=== PATIENT | female | born 1955 | race Hispanic/Latino ===

== ENCOUNTER 2020-10-14 05:55 | Day surgery (SDC) | payer MEDICARE ==
[2020-10-09 10:44] LABS: Basophils # (Auto) 0.1 K/mm3 (0.0-0.1); Basophils % (Auto) 1.1 % (0.0-1.8); Eosinophils # (Auto) 0.2 K/mm3 (0.0-0.4); Eosinophils % (Auto) 2.4 % (0.0-4.3); Hematocrit 45.8 % (30.3-42.9); Hemoglobin 15.5 gm/dl (10.1-14.3); Lymphocytes # (Auto) 2.6 K/mm3 (1.2-5.4); Lymphocytes % (Auto) 31.8 % (13.4-35.0); Mean Corpuscular HGB Conc 34 % (30-34); Mean Corpuscular Volume 89 fl (79-97); Monocytes # (Auto) 0.6 K/mm3 (0.0-0.8); Monocytes % (Auto) 7.7 % (0.0-7.3); Platelet Count 232 K/mm3 (140-440); Red Blood Count 5.12 M/mm3 (3.65-5.03); Red Cell Distribution Width 14.8 % (13.2-15.2)
[2020-10-09 11:08] LABS: Alanine Aminotransferase 13 units/L (7-56); Blood Urea Nitrogen 13 mg/dL (7-17); Calcium 9.3 mg/dL (8.4-10.2); Hemolysis Index 8
[2020-10-09 11:27] LABS: BUN/Creatinine Ratio 19
[2020-10-14] MEDS ORDERED: LACTATED RINGERS 1,000 ML IV SCH (06:00)
[2020-10-14] MEDS ORDERED: CELECOXIB 200 MG CAP PO NR (06:00)
[2020-10-14] MEDS ORDERED: ACETAMINOPHEN 500 MG TAB PO SCH (06:00)
[2020-10-14] MEDS ORDERED: MIDAZOLAM 2 MG/2 ML INJ IV NR (06:00)
[2020-10-14] MEDS ORDERED: GABAPENTIN 300 MG CAP PO NR (06:00)
[2020-10-14] MEDS ORDERED: BUPIVACAINE/PF (0.25%) 2.5 MG/ML 30 ML VIAL INFILTRATI ONE ×2 (07:12→09:10)
[2020-10-14] MEDS ORDERED: HYDROmorphone 1 MG/1 ML INJ IV PRN (07:20)
[2020-10-14] MEDS ORDERED: HYDROmorphone 1 MG/1 ML INJ ONE (07:20)
[2020-10-14] MEDS ORDERED: ONDANSETRON 4 MG/2 ML INJ IV PRN (07:20)
[2020-10-14] MEDS ORDERED: propofoL 200 MG/20 ML VIAL IV ONE (07:20)
--- NOTE | 2020-10-14 07:20 | Anesthesia Consultation ---
Anesthesia Consult and Med Hx Date of service: 10/14/20 - Airway Anesthetic Teeth Evaluation: Poor, Partials ROM Head & Neck: Adequate Mental/Hyoid Distance: Adequate Mallampati Class: Class III Intubation Access Assessment: Possibly Difficult - Pre-Operative Health Status ASA Pre-Surgery Classification: ASA3 Proposed Anesthetic Plan: General - Pulmonary Hx Smoking: Yes SOB: Yes (chronic, unchanged ARREOLA) COPD: Yes Home Oxygen Therapy: No - Cardiovascular System Hx Hypertension: Yes (took metoprolol this morning) Hx Heart Attack/AMI: No - Central Nervous System CVA: Yes (TIA 2010, 2012) Hx Back Pain: Yes - Gastrointestinal Hx Gastroesophageal Reflux Disease: Yes (diet related) - Endocrine Hx Renal Disease: No Hx Liver Disease: No Hx Insulin Dependent Diabetes: No Hx Non-Insulin Dependent Diabetes: No Hx Thyroid Disease: No - Other Systems Hx Obesity: Yes (BMI 33) - Additional Comments Anesthesia Medical History Comments: No hx anesthetic complications. Used inhalers last night. Reports rash with diclofenac but no issues with ibuprofen or other NSAIDs.
--- NOTE | 2020-10-14 07:20 | Anesthesia Day of Surgery ---
Anesthesia Day of Surgery - Day of Surgery Patient Examined: Yes Patient H&P Reviewed: Yes Patient is NPO: Yes Beta Blockers: Yes (metoprolol today AM)
[2020-10-14] MEDS ORDERED: ROCURONIUM 50 MG/5 ML INJ IV ONE (07:21)
[2020-10-14] MEDS ORDERED: LIDOCAINE MPF (2%) 20 MG/1 ML VIAL 5 ML ONE (07:21)
[2020-10-14] MEDS ORDERED: ceFAZolin/Water 2 GM/20 ML 2 GM/20 ML SYRINGE IV ONE (07:49)
--- NOTE | 2020-10-14 07:49 | Short Stay Summary ---
Short Stay Documentation Date of service: 10/14/20 Narrative H&P: Pt is a 65 year old female who presented with postmenopausal bleeding and a pelvic mass - History Principal diagnosis: Endometrial hyperplasia H&P: obtained from office Past Medical History: arthritis, hypertension, hyperlipidemia Past Surgical History: appendectomy, cholecystectomy, tonsillectomy Social history: , smoking (for several years) - Allergies and Medications Current Medications: Allergies diclofenac Allergy (Verified 10/09/20 12:34) Rash tizanidine Allergy (Verified 10/09/20 12:34) Rash Home Medications Medication Instructions Recorded Confirmed Last Taken Type Albuterol Sulfate [Proventil Hfa] 2 puff IH PRN PRN 10/09/20 10/09/20 10/13/20 22:30 History Aspirin [Adult Aspirin] 81 mg PO DAILY 10/09/20 10/14/20 10/10/20 History Fluticasone/Salmeterol [Advair 1 puff IH DAILY 10/09/20 10/09/20 10/13/20 22:30 History 250-50 Diskus] Ipratropium/Albuterol Sulfate 1 dose IH PRN PRN 10/09/20 10/09/20 10/13/20 22:30 History [DUONEB *Not for PRN Use*] Metoprolol [Lopressor] 25 mg PO DAILY 10/09/20 10/14/20 10/14/20 03:30 History Pravastatin [Pravachol] 40 mg PO QHS 10/09/20 10/14/20 10/12/20 History Active Medications Acetaminophen (Acetaminophen 500 Mg Tab) 1,000 mg PO PREOP KEN Stop: 10/14/20 23:59 Last Admin: 10/14/20 06:58 Dose: 1,000 mg Documented by: Celecoxib (Celecoxib 200 Mg Cap) 200 mg PO PREOP NR Stop: 10/14/20 23:59 Last Admin: 10/14/20 06:58 Dose: 200 mg Documented by: Gabapentin (Gabapentin 300 Mg Cap) 300 mg PO PREOP NR Stop: 10/14/20 23:59 Last Admin: 10/14/20 06:58 Dose: 300 mg Documented by: Hydromorphone HCl (Hydromorphone 1 Mg/1 Ml Inj) 0.5 mg IV Q10MIN PRN PRN Reason: Pain , Severe (7-10) Stop: 10/14/20 23:00 Lactated Ringer's (Lactated Ringers) 1,000 mls @ 50 mls/hr IV DIRECT KEN Stop: 10/14/20 23:59 Last Admin: 10/14/20 07:00 Dose: 50 mls/hr Documented by: Midazolam HCl (Midazolam 2 Mg/2 Ml Inj) 2 mg IV PREOP NR Stop: 10/14/20 23:59 Last Admin: 10/14/20 07:32 Dose: 2 mg Documented by: Ondansetron HCl (Ondansetron 4 Mg/2 Ml Inj) 4 mg IV ONCE PRN PRN Reason: Nausea And Vomiting Stop: 10/14/20 18:00 - Physical exam General appearance: no acute distress Lungs: Clear to auscultation (with mild wheezes) Breasts: deferred Heart: Regular rate, Normal S1, Normal S2 Gastrointestinal: normal, normoactive bowel sounds Female Genitourinary: normal Rectal Exam: deferred Extremities: no ischemia - Brief post op/procedure progress note Date of procedure: 10/14/20 Pre-op diagnosis: Endometrial hyperplasia, Pelvic mass Post-op diagnosis: same (with uterine fibroids, ovarian cyst, pelvic adhesions) Procedure: D&C, Diagnostic laparoscopy, Ovarian cystectomy Anesthesia: GETA Findings: 3cm subserosal fibroid on posterior left side of uterus, left tube and ovary adhesed together with small ovarian cyst, normal right adnexa, otherwise normal anatomy Surgeon: BEAN GRIMES Estimated blood loss: 50-100ml Pathology: list (endometrial curreting) Specimen disposition: to lab Condition: stable - Hospital course Hospital course: unremarkable - Disposition Condition at discharge: Good Disposition: DC-01 TO HOME OR SELFCARE Short Stay Discharge Plan Follow up with: DANIEL WADSWORTH MD [Primary Care Provider] - 7 Days
[2020-10-14] MEDS ORDERED: ceFAZolin/Water 2 GM/20 ML 2 GM/20 ML SYRINGE IV NR (08:00)
[2020-10-14] MEDS ORDERED: PHENYLEPHRINE/NS 1,000 MCG/10 ML SYRINGE (OR USE) IV ONE (08:20)
[2020-10-14] MEDS ORDERED: SODIUM CHLORIDE 0.9% IRRIG SOLN 2000 ML IR ONE (09:09)
[2020-10-14] MEDS ORDERED: NEOSTIGMINE 10MG/10 ML INJ MDV ONE (09:21)
[2020-10-14] MEDS ORDERED: dexAMETHasone 20 MG/5 ML VIAL ONE (09:21)
[2020-10-14] MEDS ORDERED: GLYCOPYRROLATE 0.4 MG/2 ML INJ ONE (09:21)
[2020-10-14] MEDS ORDERED: KETOROLAC 30 MG/1 ML INJ ONE (09:23)
[2020-10-14] MEDS ORDERED: ONDANSETRON 4 MG/2 ML INJ ONE (09:23)
[2020-10-14] MEDS ORDERED: oxyCODONE /ACETAMINOPHEN 5-325MG TAB PO PRN (10:00)
[2020-10-14] MEDS ORDERED: IBUPROFEN 600 MG TAB PO PRN (10:00)
--- NOTE | 2020-10-14 10:07 | Operative Report ---
Operative Report Operative Report: Pre Op Diagnosis: 1. Postmenopausal bleeding 2. Endometrial hyperplasia 3. Pelvic mass Post Op Diagnosis: Same with uterine fibroid, ovarian cyst and pelvic adhesions Procedure: 1. D&C 2. Diagnostic laparoscopy 3. Ovarian cystectomy 4. Lysis of adhesions Surgeon: Roya Matta MD EBL: Minimal IVF: 1000 cc Urine output: 100 cc clear at the beginning of the procedure via straight cath Specimen: Endometrial curettings Complications: None Findings: Subserosal 3 cm degenerating fibroid on the left posterior wall of the uterus, the left adnexa was adhesed with the tube wrapping around the ovary, the ovary also had a small ovarian cyst Procedure: The patient returned to the OR with IV running and in place. She was given general anesthesia without difficulty. She was then placed in dorsolithotomy position and prepped and draped in normal sterile fashion. Her bladder was drained approximately 100 cc of clear yellow urine. Attention was then turned to the patient's vagina. A bivalve speculum placed in the vagina, the uterus was then identified and grasped with single-tooth tenaculum. At first the uterus was stenotic so it had to be dilated in order to sound for length. It was then gently sounded to approximately 9 cm in length. It was then gently dilated up to approximately 21 mm. The curettage was then performed. A moderate amount of tissue was removed. This was done to there was a gritty texture noted in all 4 quadrants of the uterus. There was excellent hemostasis. A HUMI uterine manipulator was then inserted into the uterus. At this point attention was then turned to the abdomen the surgeon's gloves were changed. Approximately 5 cc of Marcaine was injected into the area just below the umbilicus. An incision was then made and a long trocar was used to enter the abdominal cavity. Laparoscope confirmed intra-abdominal placement. Anatomy revealed no evidence of abdominal adhesions despite the large abdominal scar on the patient's abdomen. The uterus and adnexa was visualized of note, there was a 3 cm subserosal fibroid protruding off the posterior left wall of the uterus that appeared to be degenerating. The left ovary was not easily identified due to the presence of the left tube did have wrapped itself around the ovary and attached to some bowel adhesions. These adhesions were taken down to reveal a ovary with a small approximately 1 cm ovarian cyst on it. This cyst was drained from minimal fluid. Once the cyst was removed the ovary appeared to be within normal limits. At this point the abdomen was deflated and all instruments were removed. The skin was closed with 4-0 Monocryl. Attention was then turned back to the vagina and the manipulator was removed at this point. At this point the patient was then awakened and taken recovery in stable condition. The sponge and instrument counts were correct x2.
[2020-10-14] MEDS ORDERED: ePHEDrine SULFATE 50 MG/1 ML INJ IM ONE (11:25)
[2020-10-14 12:47] VITALS: BP 108/52
--- NOTE | 2020-10-14 13:08 | Post Anesthesia Evaluation ---
- Post Anesthesia Evaluation Patient Participated: Yes Airway Patent: Yes Stable Respiratory Function: Yes (SpO2 returned to preop baseline on RA) Nausea/Vomiting: No Temp > 96.8F: Yes Pain Manageable: Yes Adequeate Hydration: Yes (asymptomatic hypotension which resolved with IVF bolus) Anesthesia Complications: No
== END 2020-10-14 12:35 | disposition home or self-care (01) ==
LOC: OR 05:55 → EDSTATUS 08:00 → OR 12:35
PROVIDERS: ATTEND Obstetrics & Gynecology
DX: N95.0 Postmenopausal bleeding (principal); N85.00 Endometrial hyperplasia, unspecified; R19.00 Intra-abdominal and pelvic swelling, mass and lump, unspecified site; Z20.828 Contact with and (suspected) exposure to other viral communicable diseases; F17.210 Nicotine dependence, cigarettes, uncomplicated; E78.00 Pure hypercholesterolemia, unspecified; I10 Essential (primary) hypertension; J44.9 Chronic obstructive pulmonary disease, unspecified; K21.9 Gastro-esophageal reflux disease without esophagitis; E66.9 Obesity, unspecified; M19.90 Unspecified osteoarthritis, unspecified site; Z98.890 Other specified postprocedural states; Z88.8 Allergy status to other drugs, medicaments and biological substances; Z79.899 Other long term (current) drug therapy; Z79.82 Long term (current) use of aspirin; Z98.41 Cataract extraction status, right eye; Z98.42 Cataract extraction status, left eye; Z90.49 Acquired absence of other specified parts of digestive tract; Z87.442 Personal history of urinary calculi; Z72.89 Other problems related to lifestyle; Z68.33 Body mass index [BMI] 33.0-33.9, adult; Z80.1 Family history of malignant neoplasm of trachea, bronchus and lung; Z86.73 Personal history of transient ischemic attack (TIA), and cerebral infarction without residual deficits
CPT/HCPCS: 36415; 58120; 58662; 80053; 85025; 86850; 86900; 86901; 88305; A4217; C1765; J0690; J1100; J1170; J1885; J2250; J2370; J2405; J2704; J2710; J7120; U0003